=== PATIENT | female | born 1955 | race Caucasian/White ===

== ENCOUNTER → 2024-08-26 | Outpatient (CLI) | payer MEDICARE ==
[2024-08-26 13:38] VITALS: BP 118/75; PULSE 78; RESP 16; TEMP 98.3
--- NOTE | 2024-08-26 17:18 | P.SLEEP ---
History of Present Illness DATE: 08/26/2024 CONSULTATION/NEW PATIENT EVALUATION HISTORY OF PRESENT ILLNESS/SLEEP-WAKE EVALUATION: 69-year-old lady had been e valuated in the sleep center for obstructive sleep apnea hypopnea syndrome. Patient has history of obstructive sleep apnea for about 16 years diagnosed in another institution. I reviewed results of previous sleep studies which was done in 2007 and 2010. Apnea hypopnea index at the time is around 8. Patient continued to use your CPAP equipment. I checked CPAP unit. CPAP pressure is 11 cm of water. Usage is 100% of nights, 8.1 hours per night. Leak is 23 L/min which is acceptable apnea-hypopnea index is 4.0. SLEEP SCHEDULE: Usually sleep schedule from midnight until 8:30 AM 7 days a bertin . FALLING ASLEEP: No problems with falling asleep, although patient has TV set in bedroom. DURING SLEEP: Patient using CPAP and oxygen 2 L/min supplement. Patient sleeps on the back and side position, wakes up from sleep once with nocturia. No history of hypnogogical hallucinations, sleep paralysis, or cataplexy. DURING THE DAY/WAKE STATE: Patient has very difficult time to wake up in the mo rning.. Raymond sleepiness scale is 1. Patient does not take naps. PAST MEDICAL HISTORY: Pulmonary hypertension, diastolic dysfunction with CHF, cardiac arrhythmia, hypertension, acid reflux, hyperlipidemia, hypothyroidism. PAST SURGICAL HISTORY: Permanent pacemaker insertion 2010 and 2021, inguinal hernia. MEDICATIONS: Please see below. SOCIAL HISTORY: Please see below. FAMILY HISTORY: Hypertension, heart problems, snoring, cancer, anemia, depression. REVIEW OF SYSTEMS: No snoring on CPAP, difficulty to wake up in the morning. No fevers. No double vision. No recent chest pain. No shortness of breath. No abdominal pain. No bleeding episodes. No blood in urine. No seizure episodes. PHYSICAL EXAMINATION: GENERAL: A pleasant patient without any distress. VITAL SIGNS: Please see below, weight 141 pounds, BMI 25.7. HEENT: PERRLA, EOMI. Evaluation of oropharynx showed tongue protrudes midline, low position of soft palate Mallampati 4. NECK: Supple. No JVD. Thyroid is not palpable. 13.5 inches in circumference. LUNGS: Clear to percussion and to auscultation. Good air exchange. No wheezing or rhonchi. HEART: S1, S2 regular. No murmurs, gallops or rubs. ABDOMEN: Soft and nontender. Bowel sounds are present. No organomegaly appreciated. EXTREMITIES: No clubbing or cyanosis. [employer]GE[employer]: Awake, alert, and oriented x3. Cranial nerves 2 to 7 intact. There is no fasciculation or atrophy noted. No focal deficits observed. ASSESSMENT: 1. Obstructive sleep apnea hypopnea syndrome for 16 years diagnosed in another institution's. Results of previous sleep studies in 2007 and in 2010 showed apnea hypopnea index around 8. Patient is on treatment with CPAP with 100% compliance. Extremely low position of soft palate Mallampati 4. 2. History of pulmonary hypertension, using 2 L/min oxygen supplement during sleep. 3. Hypertension. 4. Hypothyroidism. 5 acid reflux. 6 . Hyperlipidemia. 7. History of diastolic dysfunction and CHF. 8. Status post permanent pacemaker insertion. I changed regimen of CPAP to AutoPAP with range of the pressure 6 to 13 cm of water. PLAN: 1. Prescription for all necessary CPAP supplies including Mirage FX small size nasal mask, tube, filters. 2. Patient will continue to use your CPAP equipment every night for the whole night. 3. Preferable position during sleep on the side. 4. No driving if patient feels any sleepiness. Patient is aware of civil and criminal liability for unsafe driving. 5. Sleep hygiene with regular sleep time for at least 7.5-8 hours. 6. Watching weight. 7. Follow-up visit in 3 months Thank you very much for referring this patient for consultation. Sincerely, Connor Stiles MD, PhD, FAASM. Diplomat of [employer] [employer], Sleep Medicine Board by [employer] [employer] [employer] of [facility] [place] cc: John Sam MD Past Medical History Past Medical History: Coronary Artery Disease (CAD), Hyperlipidemia, Hypertension, Sleep Apnea/CPAP/BIPAP, Thyroid Disorder Additional Past Medical History / Comment(s): RLS, pace maker for complete heart block, history of Heart Failue History of Any Multi-Drug Resistant Organisms: MRSA Date of last positivie culture/infection: 2021 MDRO Source:: nose Past Surgical History: Breast Surgery, Hernia Repair, Hysterectomy, Pacemaker Additional Past Surgical History / Comment(s): ALPHONSE Past Anesthesia/Blood Transfusion Reactions: No Reported Reaction Type of Cardiac Device: Permanent Pacemaker Device Placement Date:: 2021 Past Psychological History: Anxiety, Depression Smoking Status: Never smoker Past Alcohol Use History: Rare Past Drug Use History: None Reported - Past Family History Mother Family Medical History: Coronary Artery Disease (CAD), CVA/TIA, GERD/Reflux, Hypertension Additional Family Medical History / Comment(s): anemia Father Family Medical History: Cancer, Hyperlipidemia, Hypertension Additional Family Medical History / Comment(s): mental illness, snoring, restless legs Medications and Allergies Home Medications Medication Instructions Recorded Confirmed Type Apremilast [Otezla] 30 mg PO DAILY 08/26/24 08/26/24 History Levothyroxine Sodium [Synthroid] 50 mcg PO DAILY 08/26/24 08/26/24 History Losartan [Cozaar] 25 mg PO DAILY 08/26/24 08/26/24 History Pantoprazole Sodium 40 mg PO DAILY 08/26/24 08/26/24 History Simvastatin 40 mg PO DAILY 08/26/24 08/26/24 History Venlafaxine HCl [Effexor XR] 150 mg PO DAILY 08/26/24 08/26/24 History clonazePAM 1 mg PO DAILY 08/26/24 08/26/24 History Physical Exam Vitals: Vital Signs Temp Pulse Resp BP Pulse Ox 08/26/24 13:36 98.3 F 78 16 118/75 97 Intake and Output 08/26/24 08/26/24 08/26/24 06:59 14:59 22:59 Other: Weight 63.957 kg Sleep Note - Sleep Data ESS Total: 1 - Sleep Note Sleep Note: Temperature: 98.3 F Pulse Rate: 78 Respiratory Rate: 16 Blood Pressure: 118/75 SpO2: 97 Height: 5 ft 2 in Weight: 63.957 kg BMI: Neck Circumference: 13.5
== END ==
LOC: 3 N SLEEP 13:17
PROVIDERS: ATTEND Internal Medicine
DX: G47.33 Obstructive sleep apnea (adult) (pediatric) (principal); E03.9 Hypothyroidism, unspecified; K21.9 Gastro-esophageal reflux disease without esophagitis; E78.5 Hyperlipidemia, unspecified; I11.0 Hypertensive heart disease with heart failure; I50.30 Unspecified diastolic (congestive) heart failure; Z95.0 Presence of cardiac pacemaker; Z86.79 Personal history of other diseases of the circulatory system; Z79.899 Other long term (current) drug therapy; Z79.890 Hormone replacement therapy
CPT/HCPCS: 99202

== ENCOUNTER 2025-03-03 13:06 | Day surgery (SDC) | payer MEDICARE ==
[2025-03-01 13:50] VITALS: BMI 25.7
[~2025-03-03 13:06] MED LIST: SODIUM CHLORIDE 0.9% 1,000 ML IV SCH
[2025-03-03 13:35] VITALS: BP 152/67; PULSE 74; RESP 16; TEMP 98.8
[2025-03-03] MEDS: IV FLUID CONTINUATION 450 ML IV ONE (13:41)
[2025-03-03] MEDS: IOPAMIDOL-370 100ML BTL INJ ONE (13:45)
--- NOTE | 2025-03-03 13:52 | P.EPPROC ---
- EP Procedure Note Electrophysiology Procedure Note: Cinefluoroscopy the leads revealed an atrial lead and atrial position stable RV lead in the RV apex with an adequate heel No fractures or breaks Atrial pacing threshold 0.75 V at 0.4 ms P waves 3.9 mV. Pacing impedance 450 ohms RV pacing threshold 0.8 V at 0.4 ms, pacemaker dependent, pacing impedance 800 ohms
== END 2025-03-03 14:52 | disposition home or self-care (01) ==
LOC: CATHEP 13:06
PROVIDERS: ATTEND Internal Medicine Clinical Cardiac Electrophysiology
DX: I44.2 Atrioventricular block, complete (principal); I42.9 Cardiomyopathy, unspecified; I50.22 Chronic systolic (congestive) heart failure; Z79.899 Other long term (current) drug therapy; Z95.0 Presence of cardiac pacemaker
CPT/HCPCS: 36005; 75820; Q9967